=== PATIENT | male | born 1990 | race Two or more races ===

== ENCOUNTER 2024-09-02 16:27 | Emergency (ER) | payer OTHER ==
[~2024-09-02] VITALS: Ht 167.6 cm; Wt 70.8 kg
[2024-09-02] MEDS ORDERED: DIPHENHYDRAMINE HCL 50 MG/ML VIAL 1ML ONE (21:59)
[2024-09-02] MEDS ORDERED: DEXAMETHASONE SODIUM PHOSPHATE 4 MG/ML VIAL ONE (21:59)
[2024-09-02] MEDS ORDERED: DEXAMETHASONE SODIUM PHOSP/PF 10 MG/ML VIAL IV ONE (22:00)
[2024-09-02] MEDS ORDERED: DIPHENHYDRAMINE HCL 50 MG/ML VIAL 1ML IV ONE (22:00)
[2024-09-02] MEDS ORDERED: ZYRTEC10 MG PO (22:40)
[2024-09-02] MEDS ORDERED: ATARAX10 MG PO (22:40)
== END 2024-09-03 00:45 | disposition home or self-care (01) ==
LOC: ER 16:27
DX: T78.40XA Allergy, unspecified, initial encounter (principal); R21 Rash and other nonspecific skin eruption